=== PATIENT | male | born 1955 | race Caucasian/White ===

== ENCOUNTER → 2017-08-06 10:03 | Outpatient (CLI) | payer OTHER, SELFPAY ==
[2017-08-06 12:32] LABS: CRP < 2.90 mg/L (0.0-3.0)
[2017-08-06 12:33] LABS: Absolute Lymphocyte Count 1.95 X10^3/ul (0.83-4.51); Absolute Neutrophil Count 4.3 X10^3/uL (2.0-7.7); Basophil# 0.05 X10^3/uL; Basophil% 0.7 % (0-1); Eosinophil# 0.18 X10^3/uL; Eosinophils% 2.5 % (0-5); Hematocrit 49.6 % (40-54); Hemoglobin 16.5 g/dl (13.0-16.5); Lymphocyte # 1.95 X10^3/ul (4.0); Lymphocyte % 26.7 % (19-41); Mean Corp Hgb Conc 33.3 g/gl (32-36); Mean Corpuscular Hgb 31.5 pg (27.0-32.0); Mean Corpuscular Volume 94.7 fL (80-94); Mean Platelet Vol. 10.6 fl (6.2-12.0); Monocyte# 0.79 X10^3/uL; Monocyte% 10.8 % (0-10); Neutrophil # 4.29 X10^3/uL (2.7-7.7); Neutrophil % 58.8 % (47-70); Platelet Count 228 K/mm3 (150-450); RBC Distribution Width CV 14.1 % (11.6-14.6); Red Blood Count 5.24 M/mm3 (4.6-6.2); White Blood Count 7.3 K/mm3 (4.4-11.0)
[2017-08-06 12:56] LABS: POSITIVE COUNT NO; POSITIVE DIFFERENTIAL NO; POSITIVE MORPHOLOGY NO
[2017-08-06 12:59] LABS: Erythrocyte Sedimentation Rate 3 mm/hr (0-20)
== END ==
PROVIDERS: Family Provider Internal Medicine; PCP Internal Medicine; Visit Provider Specialist
DX: T84.033A Mechanical loosening of internal left knee prosthetic joint, initial encounter (principal)
CPT/HCPCS: 36415; 85025; 85652; 86140

== ENCOUNTER → 2018-07-22 07:58 | Outpatient (CLI) | payer OTHER, SELFPAY ==
--- NOTE | 2018-07-22 08:01 | RAD_ITS ---
STUDY: X-RAY - RIGHT SHOULDER REASON FOR EXAM: Male, 63 years old. Pain. TECHNIQUE: 4 view(s) of the shoulder. COMPARISON: None. FINDINGS: There is mild degenerative arthrosis of the glenohumeral articulation. Normal acromioclavicular joint. Normal acromion. There is no acute fracture, dislocation or destructive osseous pathology. There is demineralization of the humerus and visualized osseous structures. The soft tissue structures are unremarkable. Normal visualized pulmonary apex. RAD/Shoulder min 2 Views IMPRESSION: Degenerative changes and osteopenia of the right shoulder. Electronically Signed: Bakari Monahan DO at 18:47 EST Tel [phone], Service support ,
--- NOTE | 2018-07-22 08:02 | RAD_ITS ---
STUDY: X-RAY - LEFT SHOULDER REASON FOR EXAM: Male, 63 years old. Pain. TECHNIQUE: 4 view(s) of the shoulder. COMPARISON: None. FINDINGS: There is mild degenerative arthrosis of the glenohumeral articulation. There is degenerative arthrosis of the acromioclavicular joint without inferior osseous spur formation. Normal acromion. There is no acute fracture, dislocation or destructive osseous pathology. Normal humeral head and visualized proximal humerus. There is periarticular soft tissue calcification consistent with a calcific tendinitis. Normal visualized pulmonary apex. RAD/Shoulder min 2 Views IMPRESSION: Degenerative changes of the left shoulder. Electronically Signed: Bakari Monahan DO at 18:47 EST Tel [phone], Service support ,
== END ==
PROVIDERS: Family Provider Internal Medicine; PCP Internal Medicine; Referring Provider Internal Medicine; Visit Provider Internal Medicine
DX: M25.511 Pain in right shoulder (principal); M25.512 Pain in left shoulder
CPT/HCPCS: 73030

== ENCOUNTER → 2018-10-21 | Outpatient (CLI) | payer OTHER, SELFPAY ==
--- NOTE | 2018-10-21 08:00 | RAD_ITS ---
STUDY: X-RAY - LUMBAR SPINE REASON FOR EXAM: Male, 63 years old. Lower back pain radiating into the lower extremities TECHNIQUE: 5 view(s) of the lumbar spine were obtained. COMPARISON: None FINDINGS: Normal lumbar lordosis. There is no substantial scoliosis. Grade 1 spondylolisthesis of L3 upon L4 likely due to facet arthropathy. There is multilevel endplate spondylosis of the lumbar vertebrae. Multilevel disc space narrowing most conspicuous at L3-L4 and L5-S1. There is no demonstrated fracture. There is no demonstrated spondylolysis of the pars interarticulares. The soft tissue structures are unremarkable. RAD/L/S Spine Min 4 Views IMPRESSION: 1. Multilevel degenerative disc disease and facet arthropathy, as above. Electronically Signed: Ventura Mcnamara MD at 13:47 EDT , Service support ,
== END | disposition home or self-care (01) ==
LOC: HPRAD 07:54
PROVIDERS: Family Provider Internal Medicine; PCP Internal Medicine; Referring Provider Internal Medicine; Visit Provider Internal Medicine
DX: M54.5 Low back pain (principal)
CPT/HCPCS: 72110

== ENCOUNTER 2018-11-24 14:30 | Outpatient (RCR) | payer OTHER, SELFPAY ==
--- NOTE | 2018-11-04 07:56 | HP.PTEVAL ---
Patient's Visit Information FABIANO GARCIA is a 63 year old M referred to Physical Therapy by Belem Da Silva DO with a diagnosis of LBP with radiculopathy. Date of Evaluation: 11/04/18 Physical Therapist: Tomy Martinez, MARÍAT, OCS, CSCS - Visit Plan Frequency: 2x /Week Duration: 4-6 Weeks Plan: 2x/week for 3-4 weeks... 1. Rollout quads and hip flexors and stretch in PT, teach hip flexor stretches for HEP. 2. LB ROM all directions adn progress to HEP. 3. Painfree core stregntha dn progress to HEP. Please focus on LB ROM and stretching upper legs for first two weeks as patient is very stiff. - Subjective Findings: Having back pains. Mostly at night. Got x ray and had DDD. been painful off and on for a while. Now worse at night. Wakes him up in middle of night. Not sure what position he is in. Pain is in LB in middle, no leg symptoms. Not much pain during day. Walks 5 miles per day and it hurts to start and then gets better as he goes. Intermittent. Does yard work which does nto bother him. Can only sit for so long before it starts to hurt. Gets up and feels pretty good. Doctor put him on prednisone for 4 days and it helped 100%. Now pain back to 0% better. Activities pretty normal at home. Sleeping 4 hours a night out of normal 7. - Pain LBP Pain Intensity (Out of 10): 0 Pain Intensity Range: 0, 8 Comment: night is worse. - Objective Walks and trasnfers very stiff but I today without pain. Steps hurt ascending in LB but reciprocal and I without rail. HS, quads and hip flexors are very stiff and immobile, can't even get to neutral hip extension easily. LB very stiff at 10 degrees ext and 50 flexion and 8 degrees SB, ext is mildly painful. reflexes 2/3 patella and achilles. Sensation LE WNL to gross light touch. Strength LE 4+/5 without pain, trunk strength 4-/5 flexiona nd ext. Overall very stiff in muscles of upper legs and segmentally in LB. - Goals Goal 1:: Sleep without waking at night with pain Goal Time Frame: 2-4 Weeks Goal 2:: Pt feel pain 75% improved to 1/10 at worst adn tolerable Goal Time Frame: 2-4 Weeks Goal 3:: I approp HEP to minimize future problems Goal Time Frame: 2-4 Weeks Goal 4:: <10% oswestry LB disability Goal Time Frame: 2-4 Weeks - Rehabilitation Potential Physical Therapy Diagnosis: degeneration in LB causing discomfort. Rehabilitation Potential: Fair - Anticipated Interventions Patient/Client Instruction: Educate patient on: Condition, Plan of Care For the Purpose of:: To decrease pain, To increase ROM, To improve ability of physical actions for home/community/work/leisure Therapeutic Exercise to Include: Strength training, Postural training, Flexibilty training, Passive ROM, Active ROM For the Purpose of:: To decrease pain, To increase ROM, To improve ability of physical actions for home/community/work/leisure Manual Therapy Techniques to Include: Mobilization For the Purpose of:: To increase ROM Thank you for the opportunity to evaluate your patient. For Medicare and Medicare HMO plans, please review the plan of care and approve it. It will need to be FAXED BACK to us at [phone] for Medicare purposes. For Medicare only, by signing this I certify the plan of care. Please let me know if there are questions or concerns regarding this plan of care. Physician Signature: Date:
--- NOTE | 2018-11-24 15:10 | HP.PTDCSUM ---
HP - PT D/C Summary It has been my pleasure to treat FABIANO GARCIA under orders from Belem Da Silva DO, for the diagnosis of LBP with radiculopathy for a total of 7 visit(s). Discharge Date: 11/24/18 Please see the following information for a summary of their discharge status. - Subjective Subjective: Helped out. I can sleep well. Walks at night are not excruciating. Walking is easier. Pain is 0-3/10 and is minimal. Working still can make it worse. Getting better. HEP going well. Activities are normal. To doctor in January. - Pain LBP Pain Intensity (Out of 10): 3 - Overall Improvement % Improvement: 60 - Objective Objective/Function: Good L/S AROM without pain today. Walks normal. Moving well and confident with continuing on his own vs continued PT. - Goals Goal 1:: Sleep without waking at night with pain Goal Progress: Goal Met Goal 2:: Pt feel pain 75% improved to 1/10 at worst adn tolerable Goal Progress: Progressing Goal 3:: I approp HEP to minimize future problems Goal Progress: Goal Met Goal 4:: <10% oswestry LB disability Goal Progress: 12% - Plan Plan: D/C - D/C Information Discharge Comments: Pt doing well and wishes to cotninue in gym on his own and via HEP vs continued PT. Will see doctor in January. If there are questions or concerns regarding this patient's physical therapy, please feel free to call me at [phone]. Thank you for the referral of this patient. Sincerely, Tomy Martinez, DPT, OCS, CSCS
== END 2018-11-24 19:00 | disposition home or self-care (01) ==
LOC: PT 14:30
PROVIDERS: Family Provider Internal Medicine; PCP Internal Medicine; Referring Provider Internal Medicine; Visit Provider Internal Medicine
DX: M54.16 Radiculopathy, lumbar region (principal)
CPT/HCPCS: 97110; 97140; 97162; 97530

== ENCOUNTER 2020-08-23 09:14 | Outpatient (RCR) | payer OTHER, SELFPAY ==
[2020-08-23] MEDS: COVID-19 VACC, MRNA(PFIZER)/PF 30 MCG/0.3 ML SYRINGE IM (11:00)
[2020-09-13] MEDS: COVID-19 VACC, MRNA(PFIZER)/PF 30 MCG/0.3 ML SYRINGE IM (08:24)
== END 2020-11-12 23:59 ==
LOC: IMMUN 09:14
PROVIDERS: PCP Internal Medicine; Referring Provider Family Medicine; Visit Provider Family Medicine
DX: Z23 Encounter for immunization (principal)
CPT/HCPCS: 0001A; 0002A; 91300

== ENCOUNTER → 2023-07-22 | Outpatient (CLI) | payer MEDICARE, SELFPAY ==
--- NOTE | 2023-07-22 09:30 | BD_ITS ---
STUDY: DUAL ENERGY X-RAY ABSORPTIOMETRY / DXA REASON FOR EXAM: Male, 68 years old. 733.90OsteopeniaBONE DENSITY REASON FOR EXAM TECHNIQUE: Bone Mineral Density (BMD) measurements of lumbar spine and bilateral hips were obtained. COMPARISON: None. FINDINGS: Lumbar Spine (L1-L4): g/cm2 (1.301) / T-score (2.3) / Z-score (3.1) Findings are suggestive of normal bone density with a moderate fracture risk. Left Femur Total: g/cm2 (1.150) / T-score (0.8) / Z-score (1.4) Left Femoral Neck: g/cm2 (0.987) / T-score (0.4) / Z-score (1.5) Right Femur Total: g/cm2 (1.170) / T-score (0.9) / Z-score (1.5) Right Femoral Neck: g/cm2 (0.986) / T-score (0.4) / Z-score (1.5) BD/Dexa Bone Density Study IMPRESSION: The patient is considered normal as outlined below according to World Nick Organization (WHO) criteria with a low fracture risk. Reference Information: The T-score is the number of standard deviations above or below the standard which is normal for young adults at their peak bone mineral density. The World Health Organization (WHO) interprets the T-scores as follows: Above -1 Normal bone density Between -1 and -2.5 Osteopenia Equal to / or below -2.5 Osteoporosis As a practical clinical guideline, osteopenia may be graded as follows: Mild -1 through -1.5 Moderate -1.6 through -2.0 Severe -2.1 through -2.4 The Z-score is the number of standard deviations above or below age-matched controls. A Z-score of less than -1.5 would be considered abnormal. References: 1. NIH Osteoporosis and Related Bone Diseases www osteo.org 2. International Society for Clinical Densitometry www iscd.org 3. National Osteoporosis Foundation www nof.org Electronically Signed: Morgan Nuno MD at 12:21 EST ,
== END | disposition home or self-care (01) ==
PROVIDERS: PCP Internal Medicine; Referring Provider Internal Medicine; Visit Provider Internal Medicine
DX: M81.0 Age-related osteoporosis without current pathological fracture (principal); M85.80 Other specified disorders of bone density and structure, unspecified site
CPT/HCPCS: 77080

== ENCOUNTER → 2024-02-04 | Outpatient (CLI) | payer MEDICARE, SELFPAY ==
--- NOTE | 2024-02-04 08:47 | US_ITS ---
STUDY: ABDOMINAL ULTRASOUND - RIGHT UPPER QUADRANT; ELASTOGRAPHY REASON FOR VISIT: Male, 69 years old. Fatty infiltration of the liver. TECHNIQUE: Ultrasound evaluation of the right upper quadrant was performed with real-time and static espino-scale imaging. Point quantification shear wave elastography was performed ([facility]). TECHNICAL QUALITY: Limited. Examination limited due to a combination of factors including obesity and bowel gas. COMPARISON: None. FINDINGS: Liver: The liver is enlarged and measures 18.6 cm. There is increased echogenicity consistent with fatty infiltration. The bile ducts are within normal limits. There is hepatic color flow. The direction of portal flow is hepatopetal. There is no demonstrated mass lesion. Median liver stiffness measured 9.3 kPa. Gallbladder: Normal distended gallbladder. The gallbladder wall measures 2.9 mm. There is a negative sonographic Tobin''s sign. There is no pericholecystic fluid. There are no gallstones. Common Bile Duct (C.B.D.): The common bile duct measures 4.5 mm. Pancreas: There is normal echogenicity of the visualized pancreas. There is no demonstrated pancreatic mass or cyst. Right Kidney: Normal size of the right kidney. The right kidney measures 10.8 cm x 5.4 cm x 4.9 cm. Normal renal cortex. The right cortex measures 1.4 cm. There is no demonstrated renal mass or cyst. There is no right hydronephrosis. US/ABD Limited w/ Elastography IMPRESSION: 1. Liver stiffness measures 9.3 kPa compatible with F2-F3 (Mild to moderate liver fibrosis) Metavir score. Electronically Signed: Morgan Nuno MD at 11:00 EDT ,
== END | disposition home or self-care (01) ==
LOC: US 08:45
PROVIDERS: PCP Internal Medicine; Referring Provider Internal Medicine; Visit Provider Internal Medicine
DX: K76.0 Fatty (change of) liver, not elsewhere classified (principal)
CPT/HCPCS: 76705; 76981

== ENCOUNTER → 2024-06-08 | Outpatient (CLI) | payer MEDICARE, SELFPAY ==
[2024-06-08 21:55] LABS: Amphetamine Urine VISTA NEGATIVE (<1000 ng/mL); Barbiturate Urine VISTA NEGATIVE (< 200 ng/mL); Benzodiazepine Urine VISTA NEGATIVE (< 200 ng/mL); Cocaine Urine VISTA NEGATIVE (< 300 ng/mL); Ecstacy Urine VISTA NEGATIVE (< 500 ng/mL); Methadone Urine VISTA NEGATIVE (< 300 ng/mL); PCP Urine VISTA NEGATIVE (< 25 ng/mL); THC Urine VISTA NEGATIVE (< 50 ng/mL); Vista UDS pH Range 5
== END | disposition home or self-care (01) ==
PROVIDERS: PCP Internal Medicine; Referring Provider Anesthesiology Pain Medicine; Visit Provider Anesthesiology Pain Medicine
DX: F11.20 Opioid dependence, uncomplicated (principal)
CPT/HCPCS: 80307

== ENCOUNTER → 2024-08-15 | Outpatient (CLI) | payer MEDICARE, SELFPAY ==
[2024-08-15 17:53] LABS: Potassium 5.4 mmol/L (3.3-5.1)
== END | disposition home or self-care (01) ==
LOC: LABSPEC 15:38
PROVIDERS: PCP Internal Medicine; Referring Provider Nurse Practitioner Family; Visit Provider Nurse Practitioner Family
DX: E87.5 Hyperkalemia (principal)
CPT/HCPCS: 84132

== ENCOUNTER → 2025-03-03 | Outpatient (CLI) | payer MEDICARE, SELFPAY ==
[2025-03-03 11:47] LABS: Potassium 4.7 mmol/L (3.3-5.1)
== END | disposition home or self-care (01) ==
LOC: LAB 11:11
PROVIDERS: PCP Internal Medicine; Referring Provider Internal Medicine; Visit Provider Internal Medicine
DX: E87.5 Hyperkalemia (principal)
CPT/HCPCS: 36415; 84132

== ENCOUNTER → 2025-03-08 | Outpatient (CLI) | payer MEDICARE, SELFPAY ==
[2025-03-08 10:31] LABS: Potassium 4.9 mmol/L (3.3-5.1)
== END | disposition home or self-care (01) ==
PROVIDERS: PCP Internal Medicine; Referring Provider Internal Medicine; Visit Provider Internal Medicine
DX: E87.5 Hyperkalemia (principal)
CPT/HCPCS: 84132

== ENCOUNTER 2025-04-25 08:00 | Outpatient (RCR) | payer MEDICARE, SELFPAY ==
--- NOTE | 2025-03-21 15:16 | HP.PTEVAL ---
Patient's Visit Information Visit Information Visit Information: FABIANO GARCIA is a 70 year old M referred to Physical Therapy by BETTY RUGGIERO with a diagnosis of SPINAL STENOSIS OF LUMBAR REFGION NEUROGENIC CLAUDICATION. Date of Evaluation: 03/21/25 Physical Therapist: Jasen Pereira, PT, Cert MDT, OCS Visit Plan Frequency: 2x /Week Duration: 4 Weeks Plan: PT INTERVENTIONS DLS ,POSTURAL 'S ,LUMBAR FLEXION ,BLE STRENGTHENING , LUMBAR FLEXION ,LE FLEXABILITY AND BALANCE PROGRAM Subjective Subjective: This 70 y/o male presents to physical therapy with lumbar stenosis. Patient has lumbar radiculopathy to anterior thighs to knees .Symptoms have been worsening.Patient seen [facility] and had x-ray showed DDD scoliosis. No MRI and recommended PT. Patient has seen pain management which has no helped. Aggravating factors factors walking/standing less 5 mins . Alleviating factors rest,sitting. Medication tramadol from pain management and gabapentin. Aleve relieves symptoms. C/O paresthesia/tingling legs. C/o weakness in legs. Bowel/bladder =. Coughing/sneezing -. No abnormal night pain. Patient has had prior PT. Patient has limitations with walking program. Patient condition affects QOL and function/walking. Patient goals to walk further. SOCIAL: VOCATION: retired LEISURE: Camping Pain Bilateral Back: Pain Intensity (Out of 10): 8 Pain Intensity Range: 10 Objective Objective: POSTURE: mild forward posture ,trunk slight scoliosis GAIT: reciprocal pattern slow himanshu trunk flexed NEURO: denies paresthesia/tingling ,reflexes L3-4,L4-5,L5-S1 1/3 FLEXABILITY: hamstrings mod tight MMT: quads/hams 4/5 ,hip flexion 4-/5 ,ankle 5/5 LUMBAR ROM: flexion 25 % ,extension 75 % loss ,side glides 50% loss Special Tests L/S Slump test left side: Negative L/S Slump test right side: Negative L/S Left Straight Leg Raise: Negative L/S Right Straight Leg Raise: Negative Balance/Special Test Scores Functional Gait Assessment Score: 24 % Disability: 20.0000 Oswestry Low Back Score: 20 Goals Goal 1:: Patient to be I with HEP for back and strengthening Goal Time Frame: 4-6 Weeks Goal 2:: Patient to improve lumbar ROM for function of recovery for ADLS and putting on shoes Goal Time Frame: 4-6 Weeks Goal 3:: Patient to improve ability to walk /stand >10 min function Goal 4:: Patient to improve back oswestry score by 5 points to improve QOL and function Goal Time Frame: 4-6 Weeks Goal 5:: Patient to demonstrate 50% in function with ADLS and housework Goal Time Frame: 4-6 Weeks Rehabilitation Potential Physical Therapy Diagnosis: This patient has lumbar stenosis affecting legs with pain worse with standing/walking better sitting difficulty walking > 5 mins thus benefit from skilled PT Rehabilitation Potential: Fair Anticipated Interventions Patient/Client Instruction: Educate patient on: Condition and Plan of Care For the Purpose of:: To decrease pain, To increase ROM, To improve muscle performance and motor function, To improve ability to perform ADL's, To increase tolerance to activity/condition/position, To improve ability of physical actions for home/community/work/leisure, To increase flexibility/ROM and To improve endurance Therapeutic Exercise to Include: Strength training, Endurance training, Balance training, Postural training, Flexibilty training and Dynamic Lumbar Stabilization For the Purpose of:: To decrease pain, To increase ROM, To improve muscle performance and motor function, To improve ability to perform ADL's, To increase tolerance to activity/condition/position, To improve ability of physical actions for home/community/work/leisure, To improve health of tissue, To decrease soft tissue restriction and To increase flexibility/ROM Text: Thank you for the opportunity to evaluate your patient. For Medicare and Medicare HMO plans, please review the plan of care and approve it. It will need to be FAXED BACK to us at [phone] for Medicare purposes. For Medicare only, by signing this I certify the plan of care. Please let me know if there are questions or concerns regarding this plan of care. Physician Signature: Date:
--- NOTE | 2025-04-25 08:29 | HP.PTDCSUM ---
Discharge Summary D/C summary: It has been my pleasure to treat FABIANO GARCIA referred by BETTY RUGGIERO, with the diagnosis of SPINAL STENOSIS OF LUMBAR REFGION NEUROGENIC CLAUDICATION for a total of 9 visit(s). Discharge Date: 04/25/25 Please see the following information for a summary of their discharge status. Subjective Subjective: Plan to do program with silver sneaker Pain Bilateral Back: Pain Intensity (Out of 10): 3 Overall Improvement % Improvement: 25 Objective Objective/Function: OSTURE: mild forward posture ,trunk slight scoliosis GAIT: reciprocal pattern slow himanshu trunk flexed NEURO: denies paresthesia/tingling ,reflexes L3-4,L4-5,L5-S1 1/3 FLEXABILITY: hamstrings mod tight MMT: quads/hams 4/5 ,hip flexion 4-/5 ,ankle 5/5 LUMBAR ROM: flexion 25 % ,extension 75 % loss ,side glides 50% loss Goals Goal 1:: Patient to be I with HEP for back and strengthening Goal Progress: Goal Met Goal 2:: Patient to improve lumbar ROM for function of recovery for ADLS and putting on shoes Goal Progress: Progressing Goal 3:: Patient to improve ability to walk /stand >10 min function Goal Progress: Progressing Goal 4:: Patient to improve back oswestry score by 5 points to improve QOL and function Goal Progress: Progressing Goal 5:: Patient to demonstrate 50% in function with ADLS and housework Goal Progress: Progressing Plan Plan: d/c to HEP and gym program D/C Information Discharge Comments: hep and gym d/c sentence: If there are questions or concerns regarding this patient's physical therapy, please feel free to call me at [phone]. Thank you for the referral of this patient. Sincerely, Jasen Pereira, PT, Cert MDT, OCS Balance/Gait/Functional tests Balance/Special Test Scores Functional Gait Assessment Score: 24 % Disability: 20.0000 Oswestry Low Back Score: 10 Improvement % Improvement: 25
== END 2025-04-25 19:00 | disposition home or self-care (01) ==
LOC: PT 08:00
PROVIDERS: PCP Internal Medicine
DX: M48.061 Spinal stenosis, lumbar region without neurogenic claudication (principal)
CPT/HCPCS: 97110; 97162; 97530